=== PATIENT | female | born 1945 | race Caucasian/White ===

== ENCOUNTER 2019-07-04 19:28 | Observation (INO) | payer MEDICARE, BC, SELFPAY ==
--- NOTE | 2019-07-04 19:47 | DI.CT.S_ITS ---
PROCEDURE: CT STROKE INDICATIONS: stroke symptoms TECHNIQUE: Noncontrast 4.5 mm thick angled axial sections acquired from the foramen magnum to the vertex, with coronal reformats. For radiation dose reduction, the following was used: automated exposure control, adjustment of mA and/or kV according to patient size. COMPARISON: None. FINDINGS: Image quality: Excellent. CSF spaces: Basal cisterns are patent. No extra-axial fluid collections. The ventricles are symmetric in size and shape. Brain: No intracranial bleeds or masses. There is mild cerebral volume loss for age, with resultant ventricular and sulcal prominence. There are mild periventricular and deep white matter chronic small vessel ischemic changes. There is intracranial internal carotid artery atherosclerosis. Skull and face: Calvarium and visualized facial bones appear intact, without suspicious lesions. Sinuses: Visualized sinuses and mastoids are clear. IMPRESSION: 1. No acute intracranial abnormalities. 2. Cerebral volume loss and chronic microvascular ischemic changes. This result was discussed with Dr. Benjamín Oliveira at 20:23 hours. This study fulfills neurological imaging criteria for inclusion or exclusion of acute stroke therapies based on available published neurological guidelines. Dictated by: Dario Juarez M.D. on 07/04/2019 at 20:18 Approved by: Dario Juarez M.D. on 07/04/2019 at 20:24
[2019-07-04 19:52] VITALS: BP 151/67; PULSE 78; RESP 20; TEMP 36.4; O2SAT 98
--- NOTE | 2019-07-04 20:08 | ED.NEUROSD ---
HPI - Neuro Symptoms/Deficit General Chief Complaint: Neuro Symptoms/Deficit Stated Complaint: thinks had a TIA Time Seen by Provider: 07/04/19 19:46 Source: patient and family Mode of arrival: Ambulatory History of Present Illness HPI Narrative: 73-year-old woman currently receiving chemotherapy for Waldenstrom's macroglobulinemia presents after having a discrete approximately 2 minute episode of altered mental status. She was at dinner with her family with a daughter who is a nurse practitioner and [id number] who is an RN. She describes the episodes starting with black dots in all visual romero and a sense that something was wrong. She then has no recollection of the next 2 minutes and her daughter describes she lost consciousness slumped forward had some rhythmic bobbing movement of her head of both arms initially and then flaccidity in the left arm. She was sitting at the table at this time so we are not sure if legs were involved or not. She maintained her airway as well as pulses throughout the entire event. She regained consciousness on her symptoms all seem to completely resolve. The daughter does not note that she had any facial droop or facial asymmetries and as she was more alert, approximately 5-10 minutes to return to her baseline level of alertness, the left arm began working normally. On arrival in the emergency room she states that she feels little bit tired and somewhat ?off? but has no focal neurologic symptoms, no headache, no fevers no cough, no chills no lower extremity edema and no hyper reflexia. On Anticoagulants: No Review of Systems Review of Systems Narrative: Vulvar zoster since February of 2019 All systems reviewed and are unremarkable except as noted in HPI and below Patient History Medical History (Updated 07/04/19 @ 20:26 by Willow Butts MD) Waldenstroms macroglobulinemia (Acute) Surgical History (Updated 07/04/19 @ 20:26 by Willow Butts MD) H/O rotator cuff surgery (Acute) S/P diskectomy (Acute) Total knee replacement status (Acute) Exam Narrative Exam Narrative: General: Healthy appearing, in no acute distress. Able to give a complete and coherent history. Well-nourished well-developed HEENT: Moist mucous membranes, normal sclera with reactive pupils, Neck: No JVD, supple Respiratory: Lungs are clear to auscultation, no wheezing no rales no rhonchi. Full and symmetrical air movement Cardiac: Regular rate and rhythm no murmurs no bruits Abdomen: Soft nontender good bowel tones, no flank pain Skin: Warm and dry, no rashes Neurologic: Grossly neurologically intact with no obvious asymmetries or abnormalities, 2+ reflexes in upper extremities. No reflexes due to bilateral knee replacements at patella Extremities: No trauma, well perfused Psych: Cooperative, appropriate insight and affect NIH: 0 Initial Vital Signs Initial Vital Signs: Vital Signs Temperature 97.5 F L 07/04/19 19:52 Pulse Rate 78 07/04/19 19:52 Respiratory Rate 20 07/04/19 19:52 Blood Pressure 151/67 H 07/04/19 19:52 Pulse Oximetry 98 07/04/19 19:52 Course Course Course Narrative: 8:21pm Radiology - Head CT negative for bleed Orders Ordered: ED Orders 07/04/19 19:47 CT Stroke Stat Urine Drug Screen, Rapid Stat 07/04/19 20:12 EKG-12 Lead Stat 07/04/19 20:25 Basic Metabolic Panel Stat Complete Blood Count AUTO DIFF Stat Partial Thromboplastin Time Stat Prothrombin Time INR Stat Sodium Chloride (Normal Saline 0.9%) 1,000 mls @ 150 mls/hr IV CONT CARMEN Vital Signs Vital signs: Vital Signs - 8 hr 07/04/19 19:52 Temperature 97.5 F L Pulse Rate 78 Respiratory Rate 20 Blood Pressure 151/67 H Pulse Oximetry 98 MDM - Neuro Symptoms/Deficit Medical Records Attestation: I reviewed the patient's medical records. Lab Data Attestation: I reviewed the patient's lab results. Result diagrams: 07/04/19 20:25 07/04/19 20:25 Labs: Lab Results 07/04/19 07/04/19 07/04/19 Range/Units 20:25 20:25 20:25 WBC 6.6 (4.5-11.0) X10^3/uL RBC 3.96 L (4.0-5.2) X10^6/uL Hgb 11.7 L (12.0-16.0) g/dL Hct 34.5 L (36-46) % MCV 87.1 (80-100) fL MCH 29.4 (26-34) PG MCHC 33.8 (30-36) % RDW 13.3 (11.6-14.8) % Plt Count 142 L (150-400) X10^3/uL Neut % (Auto) Not Reportable Lymph % (Auto) Not Reportable [place] % (Auto) Not Reportable Eos % (Auto) Not Reportable Baso % (Auto) Not Reportable Lymph # (Auto) Not Reportable [place] # (Auto) Not Reportable Baso # (Auto) Not Reportable Total Counted 100 Seg Neutrophils % 74.0 H (38-70) % Band Neutrophils % 9.0 H (3-7) % Lymphocytes % (Manual) 4.0 L (25-45) % Monocytes % (Manual) 13.0 H (2-11) % Neutrophils # (Manual) 5478 (4160-3865) /uL RBC Morphology Normal morphology PT 11.7 (10.1-12.7) SECONDS INR 1.0 (0.9-1.3) APTT 29 (26.4-36.2) SECONDS Sodium 133 L (137-145) mmol/L Potassium 4.2 (3.4-5.1) mmol/L Chloride 99 (98-107) mmol/L Carbon Dioxide 25 (22-32) mmol/L BUN 15 (7-17) mg/dL Creatinine 0.80 (0.52-1.04) mg/dL Estimated GFR > 60.0 (>60) mL/min BUN/Creatinine Ratio 18.8 (6-22) Glucose 146 H (80-110) mg/dL Calcium 9.9 (8.4-10.2) mg/dL Imaging Data CT scan - head: Radiologist's Impression: IMPRESSION: 1. No acute intracranial abnormalities. 2. Cerebral volume loss and chronic microvascular ischemic changes. This result was discussed with Dr. Butts o at 20:23 hours. This study fulfills neurological imaging criteria for inclusion or exclusion of acute stroke therapies based on available published neurological guidelines. Dictated by: Dario Juarez M.D. on 07/04/2019 at 20:18 ECG Data Attestation: I personally reviewed and interpreted this ECG as follows: Interpretation: Sinus rhythm at a rate of 87. No acute ischemia, normal axis MDM Narrative Medical decision making narrative: Very significant discrete episode earlier today. Unclear if this represents of seizure versus a TIA. Initial imaging study is unremarkable remainder of studies are unremarkable and she is back to her baseline. Would like to admit her overnight to complete a full TIA workup. She is at risk for for hyper viscosity events due to her waldenstorm macroglobulinemia. 903pm care is reviewed with Dr. Frank. He will take care of the patient during her hospital admission. Transition orders will be entered. She is safe to transfer to the floor at this time.
[2019-07-04 20:33] LABS: Hematocrit 34.5 % (36-46); Hemoglobin 11.7 g/dL (12.0-16.0); Mean Corpuscular HGB Conc 33.8 % (30-36); Mean Corpuscular Hemoglobin 29.4 PG (26-34); Mean Corpuscular Volume 87.1 fL (80-100); Platelet Count 142 X10^3/uL (150-400); Red Blood Cell Count 3.96 X10^6/uL (4.0-5.2); Red Cell Distribution Width 13.3 % (11.6-14.8); White Blood Cell Count 6.6 X10^3/uL (4.5-11.0)
[2019-07-04 20:34] LABS: Add Manual Diff / Slide Review YES
[2019-07-04 20:39] LABS: Prothrombin Time 11.7 SECONDS (10.1-12.7)
[2019-07-04 20:41] LABS: PTT Partial Thromboplastin Tim 29 SECONDS (26.4-36.2)
[2019-07-04 20:42] LABS: BUN Creatinine Ratio 18.8 (6-22); Blood Urea Nitrogen 15 mg/dL (7-17); Calcium 9.9 mg/dL (8.4-10.2); Carbon Dioxide 25 mmol/L (22-32); Chloride 99 mmol/L (98-107); Estimated Glomerular Filt Rate > 60.0 mL/min (>60); Glucose 146 mg/dL (80-110); HEMOLYSIS < 15 (0-50); Potassium 4.2 mmol/L (3.4-5.1); Sodium 133 mmol/L (137-145)
[2019-07-04 20:55] LABS: Neutrophils Absolute Manual 5478 /uL (3000-5900); RBC Morphology Normal Morphology; Total Cells Counted 100
[2019-07-04 21:48] VITALS: BP 145/85; PULSE 86; RESP 18; TEMP 36.8; O2SAT 94
[2019-07-04 21:49] VITALS: BMI 30.6
--- NOTE | 2019-07-04 22:27 | PC.NURSE ---
Pt arrived on unit at approx 2124. She is A and O x 4, VSS. She is able to describe the event in great detail, however she has no memory of the actual seizure. She was told by her niece Marianne, that she became incontinent, was drooling, had significant weakness in her L UE, and had garbled speech. She states she had one glass of wine prior, and felt extremely light headed. She states she had a bout of shingles in her perineum/buttocks area for which she takes gabapentin. She was able to correctly answer all neuro questions and appears unaltered.
[2019-07-04 23:30] VITALS: BP 109/66; PULSE 81; RESP 16; TEMP 36.8; O2SAT 93
[2019-07-05] MEDS: SODIUM CHLORIDE 0.9% 1,000 ML 100 ML IV ×3 (00:32→09:47)
[2019-07-05] MEDS: GABAPENTIN 100 MG CAPSULE 200 MG PO ×2 (00:49→09:47)
[2019-07-05 03:55] VITALS: BP 99/59; PULSE 68; RESP 16; TEMP 36.8; O2SAT 94
--- NOTE | 2019-07-05 05:20 | PC.NURSE ---
Patient came to floor with minimal orders. Dr. Frank hotel operations manager doctor paged at [phone]. I told him there were no orders for the patient. He gave verbal telephone order for regular diet order, telemetry, and home medications ordered Tylenol Q8 975mg, Gabapentin 200mg BID, Naproxen 250 mg BID, Loratidine 10mg , Normal Saline at 100ml/hr. Dr. Frank to order MR/Stroke protocol in AM. VSS. Lung sounds clear. Denies pain.
[2019-07-05 08:00] VITALS: BP 138/89; PULSE 78; RESP 17; TEMP 36.4; O2SAT 94
--- NOTE | 2019-07-05 08:33 | DI.MRI.S_ITS ---
PROCEDURE: MR STROKE Pre- and post-contrast brain MRI, non-contrast brain MR angiogram, pre- and postcontrast neck MR angiogram INDICATIONS: stroke protocol TECHNIQUE: Brain: Noncontrast axial T1 spin echo, axial T2 fast spin echo, sagittal and axial FLAIR, coronal T2 fast spin echo, axial gradient echo, axial diffusion and ADC through the brain. After the administration of contrast, axial 3D VIBE of the cranial vasculature and brain. Brain MRA: Non-contrast 3-D time of flight MR angiogram, with multiple cqksdfe-wijdtquie-bnbiigfygh (MIP) reformats performed. Neck MRA: Axial and sagittal TruFISP through the neck. Coronal dynamic MR angiogram during administration of contrast in the arterial and venous phases, with 3-dimenstional fjbcfhq-gmjiiqizj-lewagsmxcx (MIP) reformats constructed from subtraction images. COMPARISON: [facility], CT, CT STROKE, 07/04/2019, 19:59. FINDINGS: Image quality: Excellent. BRAIN: The ventricular system and cortical sulci demonstrate atrophy, consistent for the patient's stated age. There are areas of increased T2/FLAIR signal intensity within the periventricular and subcortical white matter. There is no acute intra-or extra axial fluid collection. No acute hemorrhage, mass lesion or midline shift. Brainstem is unremarkable. There are no areas of restricted diffusion. Globes are symmetrical. Sinuses are aerated. Osseous structures are intact. BRAIN MR ANGIOGRAM: The posterior circulation demonstrates a left vertebral artery dominance. Basilar artery and posterior cerebral arteries demonstrate no areas of hemodynamically significant stenosis, vascular occlusion or aneurysmal dilation. Posterior communicating arteries are within normal limits. The anterior circulation, including the anterior and middle cerebral arteries, as well as internal carotid arteries demonstrates no areas of hemodynamically significant stenosis, vascular occlusion or aneurysmal dilation. 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 NECK MR ANGIOGRAM: The origins of the left and right common and external carotid arteries demonstrate no areas of hemodynamically significant stenosis, vascular occlusion or aneurysmal dilation. Less than 50% stenosis is present at the origin of the internal carotid arteries bilaterally. Origins of the left and right vertebral arteries demonstrate no areas of hemodynamically significant stenosis, vascular occlusion or aneurysmal dilation. Aortic arch demonstrates conventional anatomy. Limited, visualized portions of the subclavian vasculature are unremarkable. IMPRESSION: 1. No acute intracranial process. 2. Mild to moderate atrophy and chronic microvascular ischemic changes. 3. No areas of hemodynamically significant stenosis, vascular occlusion or aneurysmal dilation within the anterior or posterior circulation. 4. Less than 50% stenosis of the internal carotid arteries bilaterally. Dictated by: Nasrin Stuart M.D. on 07/05/2019 at 11:17 Approved by: Nasrin Stuart M.D. on 07/05/2019 at 11:28
--- NOTE | 2019-07-05 08:36 | PM.HP.1 ---
History of Present Illness History of Present Illness Date Patient Seen: 07/05/19 Time Patient Seen: 08:06 Chief complaint: thinks had a TIA Narrative: Patient is a 73-year-old female who lost consciousness at a restaurant. Was out about 2 minutes there was some complete and total lack of response and question of bobbing of head and both arms initially followed by flaccidity of the left arm. She was aware that she was not feeling good transiently before this episode visual spots to the sides than completely lost consciousness no vomiting but did lose control of her bladder. After approximately 2 minutes she began to regain consciousness felt very fatigued and a little groggy but felt like she was back at her baseline by the time she reached the emergency room. Patient has long history of all instruments and is recently started chemotherapy with adjustments in increases in her chemo exposure over the last 2 initial courses. Patient History Medical History (Updated 07/04/19 @ 22:38 by Willow Butts MD) Waldenstroms macroglobulinemia (Acute) Surgical History (Updated 07/04/19 @ 20:26 by Willow Butts MD) H/O rotator cuff surgery (Acute) S/P diskectomy (Acute) Total knee replacement status (Acute) Family & Social History Social History: household members none Prior Living Arrangements House Safety & Behavioral: Feels Safe in Current Yes Environment Been Physically Hurt or No Threatened By a Person Suicidal Ideation Description None Suicide Plan Description No Plan Tobacco & Substance use: Tobacco type cigarettes Smoking Status Former smoker alcohol intake frequency 0-2 drinks per day Substance Use Type does not use Meds Home Medications and Allergies Home Medications Medication Instructions Recorded Confirmed Type acetaminophen [Tylenol 8 Hour] 1,000 mg PO Q8H PRN 07/04/19 07/04/19 History gabapentin 200 mg PO BID 07/04/19 07/04/19 History loratadine [Claritin] 10 mg PO DAILY 07/04/19 07/04/19 History naproxen sodium [Aleve] 220 mg PO BID PRN 07/04/19 07/04/19 History Allergies Allergy/AdvReac Type Severity Reaction Status Date / Time hydrocodone [From [place]] Allergy Verified 07/04/19 22:21 Review of Systems Review of Systems ROS: Yes All systems reviewed with the patient and are negative except as otherwise documented Exam Vital Signs (past 8 hours): - 07/05/19 03:55 Temperature 98.2 F Pulse Rate 68 Respiratory Rate 16 Blood Pressure 99/59 L Pulse Oximetry 94 Oxygen Delivery Method Room Air Oxygen Flow Rate 0 Narrative Exam Narrative: Patient sitting alert comfortably no changes in speech or neurologic exam answering questions completely clearly PERRLA EOMs intact Neck without mass Lungs clear to auscultation percussion Heart shows regular rate and rhythm without murmur Abdomen nontender no hepatosplenomegaly Neuro intact symmetrical to sensory motor and cranial nerves intact Skin without any significant abnormalities Objective Labs Result Diagrams: 07/04/19 20:25 07/04/19 20:25 Labs: Laboratory Results - last 24 hr 07/04/19 07/04/19 07/04/19 20:25 20:25 20:25 WBC 6.6 RBC 3.96 L Hgb 11.7 L Hct 34.5 L MCV 87.1 MCH 29.4 MCHC 33.8 RDW 13.3 Plt Count 142 L Neut % (Auto) Not Reportable Lymph % (Auto) Not Reportable [place] % (Auto) Not Reportable Eos % (Auto) Not Reportable Baso % (Auto) Not Reportable Lymph # (Auto) Not Reportable [place] # (Auto) Not Reportable Baso # (Auto) Not Reportable Total Counted 100 Seg Neutrophils % 74.0 H Band Neutrophils % 9.0 H Lymphocytes % (Manual) 4.0 L Monocytes % (Manual) 13.0 H Neutrophils # (Manual) 5478 RBC Morphology Normal morphology PT 11.7 INR 1.0 APTT 29 Sodium 133 L Potassium 4.2 Chloride 99 Carbon Dioxide 25 BUN 15 Creatinine 0.80 Estimated GFR > 60.0 BUN/Creatinine Ratio 18.8 Glucose 146 H Calcium 9.9 Assessment & Plan Assessment & Plan narrative: Assessment 1. Syncopal episode with characteristics of seizure event. She has very high protein levels with her [place] strong is could have become viscous enough to obstruct transiently causing damage in breaths triggering seizure event she definitely was unconscious and had asymmetry in our movement along with head bobbing and loss of bladder control. She was feeling lightheaded and spots in her vision before this event happened so she could of been hypotensive as well these things could have been aggravated by her chemo. ER CT scan showed no mass but things MRI to final more clearly. Assessment 2. Waldenstroms, will Had this for many years just currently started chemo for that and so things are different than usual and she has felt much more fatigued lately. Will review with her oncologist about what her port which is the only are thing that she has internally that might have many metal and at. Also will discuss with him the possibility that her recent lytic chemo might have contributed to this event. Assessment 3. Patient has history of to bilateral knee replacements with patellar components. Patient is also had diskectomy for a back issues and a distant of rotator cuff procedure Quality VTE Deep Vein Thrombosis/Pulmonary Embolism Present on Admission: No
--- NOTE | 2019-07-05 09:21 | CM.DANOTE ---
DCP: Case received, EMR reviewed and met with patient. Introduced self and role. Was able to meet with patient to obtain information regarding baseline activity and health information. DCP assessment completed with information currently available. Patient is a 73 year old female who admitted yesterday evening to the care of the hospitalist team. PCP: YURIDIA Caceres. Payer: confirmed: Medicare/BCBS Out of [facility]. Patient came to the hospital via family vehicle secondary to symptoms of altered mental status. Patient is being checked for potential TIA versus seizure. Met with patient in her room. She is alert and oriented, pleasant. She stated that she was having dinner with her niece, who is a PA, and her [id number], who is an RN. She mentioned, she was seeing spots before her eyes. Patient is currently going to [facility] for chemo once a month for her [place]den[place]'s Macroglobulimia. Patient stated, she was diagnosed with this about 20 years ago. Patient lives alone, is independent. She has a neighbor named Juan Pablo, who checks in on her. Patient stated, she does feel weak on her chemo days, and spends most of her time in bed. She does have good support from friends and family. P: DCP to continue to follow and be available for any resources needed. Patient should be able to go home when she is medically stable. Isha Keith RN/Mine Motor Engineer
[2019-07-05 11:48] VITALS: BP 124/77; PULSE 73; RESP 17; TEMP 36.7; O2SAT 95
--- NOTE | 2019-07-05 14:33 | PC.NURSE ---
Shift summary: Alert and oriented X3. Moving all extremities equally, denies paresthesias. Denies having any of the same type of symptoms that precipitated her admission, and none have been observed by this scientific writer. MRI was done this morning. Tele monitoring ongoing, sinus rhythm per both readings. Lungs CTA. HRR. VSS. Room air. Denies pain or discomfort. Able to make needs known and calls appropriately. SBA OOB. Call light and belongings within reach, bed alarm on.
[2019-07-05 15:50] VITALS: BP 125/75; PULSE 75; RESP 16; TEMP 37; O2SAT 95
--- NOTE | 2019-07-05 16:52 | PC.NURSE ---
Evening note: Layla resting in bed, Ox3, VS stable. RA oxygen 95% and tele SR. Apical HR regular, murmur. Ambulated in hallways to [place] nurse station and back to room, gait steady. Read me part of her magazine, no slurred speech. Mac Developer equal & does not feel weakness to legs while ambulating. Awaiting visit from her son. Appears in good spirits and using nurse call button appropriately for help. Alarm active for safety & fall precautions are in place.
--- NOTE | 2019-07-05 17:43 | PM.DS.1 ---
History of Present Illness History of Present Illness Chief complaint: thinks had a TIA Narrative: Patient is a 73-year-old female who lost consciousness at a restaurant. Was out about 2 minutes there was some complete and total lack of response and question of bobbing of head and both arms initially followed by flaccidity of the left arm. She was aware that she was not feeling good transiently before this episode visual spots to the sides than completely lost consciousness no vomiting but did lose control of her bladder. After approximately 2 minutes she began to regain consciousness felt very fatigued and a little groggy but felt like she was back at her baseline by the time she reached the emergency room. Patient has long history of all instruments and is recently started chemotherapy with adjustments in increases in her chemo exposure over the last 2 initial courses. Discharge Providers Provider Date of admission: 07/04/19 21:12 Discharge Date: 07/05/19 Discharge provider: Alexandro Frank MD Summary Hospital Course Discharge Diagnosis: Assessment 1. Syncopal episode with factors consistent with seizure event. Loss of consciousness for several minutes with loss of bowel control and slight movement of arms. Could also have been hypotensive syncopal episode no arrhythmia noted and negative evaluation for those things in the ER. Doubt it would be result of TIA event given that she was out for 2 minutes and no injury seen on CT or MRI. I think patient is stable enough to discharge home with the negative workup and have follow-up with her primary care provider and [place] tomorrow and she can set up a neurologic evaluation to make sure that were not talking about possible seizure Assessment 2. [place]. 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 I talked with her oncologist Dr. Giovani Taylor today who felt like it was unlikely the meds with have triggered this event but she was not feeling well was not taking fluids well secondary to that and she might have been hypotensive. Hospital Course: Patient admitted from ER in the night last night following loss of consciousness and dinner as described above. Has been her normal self at her baseline cognitively neurologically physically in terms of vital signs since then with negative CT scan negative labs and negative MRI with MRA. As well she is doing I think she can go home follow-up outpatient with her usual provider Vanessa Tang nurse practitioner at [facility]. Have stressed importance of her not climbing on anything driving B unit situation where syncopal recurrence could be dangerous. She has an involved in close friends and family who are present. Status at Discharge Cognitive/behavioral status at discharge: oriented Functional status at discharge: independent ambulation Overall status at discharge: patient is back to baseline Time Spent with Patient Time spent: Greater than 30 minutes Exam Vital Signs (past 8 hours): - 07/05/19 11:48 07/05/19 15:50 Temperature 98.1 F 98.6 F Pulse Rate 73 75 Respiratory Rate 17 16 Blood Pressure 124/77 125/75 Pulse Oximetry 95 95 Oxygen Delivery Method Room Air Oxygen Flow Rate 0 Objective Labs Result Diagrams: 07/04/19 20:25 07/04/19 20:25 Labs: Laboratory Results - last 24 hr 07/04/19 07/04/19 07/04/19 20:25 20:25 20:25 WBC 6.6 RBC 3.96 L Hgb 11.7 L Hct 34.5 L MCV 87.1 MCH 29.4 MCHC 33.8 RDW 13.3 Plt Count 142 L Neut % (Auto) Not Reportable Lymph % (Auto) Not Reportable [place] % (Auto) Not Reportable Eos % (Auto) Not Reportable Baso % (Auto) Not Reportable Lymph # (Auto) Not Reportable [place] # (Auto) Not Reportable Baso # (Auto) Not Reportable Total Counted 100 Seg Neutrophils % 74.0 H Band Neutrophils % 9.0 H Lymphocytes % (Manual) 4.0 L Monocytes % (Manual) 13.0 H Neutrophils # (Manual) 5478 RBC Morphology Normal morphology PT 11.7 INR 1.0 APTT 29 Sodium 133 L Potassium 4.2 Chloride 99 Carbon Dioxide 25 BUN 15 Creatinine 0.80 Estimated GFR > 60.0 BUN/Creatinine Ratio 18.8 Glucose 146 H Calcium 9.9 Discharge Plan Discharge Plan Patient Disposition: Home Discharge orders & Medications Prescriptions: Continued acetaminophen [Tylenol 8 Hour] 650 mg Tablet Extended Release 1,000 mg PO Q8H PRN (Reason: Body Aches ) RF: 0 gabapentin 100 mg Capsule 200 mg PO BID RF: 0 loratadine [Claritin] 10 mg Tablet 10 mg PO DAILY RF: 0 naproxen sodium [Aleve] 220 mg Capsule 220 mg PO BID PRN (Reason: Pain, Mild) RF: 0 Follow up/Referrals: Vanessa Tang ARNP [[facility]] - 07/06/19 3:30 pm Discharge Health Status Health Concerns: syncopal episode, ?seizure vs TIA Multidrug resistant organism: No MDRO Diet/Activity/Treatments Diet: Diet as Tolerated Activity: rest, no driving Discharge Data Attending Provider: Alexandro Frank Admit Date/Time: 07/04/19 21:12 Quality VTE Deep Vein Thrombosis/Pulmonary Embolism Present on Admission: No
--- NOTE | 2019-07-05 18:39 | PC.NURSE ---
Discharge note: Dr Frank in room to see patient, new orders given to DC patient home. I revieved DC paperwork & all instructions with her & her son. Aware of follow up appt tomorrow and of instruction by MD to rest and not to drive. Teaching given re: syncope, dehydration, s/s of stroke, etc. VS stable, tele sinus. Tele DC'd. IV to LAC DC'd, pressure drsg applied. Patient now getting dressed. Denies dizziness, speech clear. Ambulating independent in room with steady gait.
== END 2019-07-05 19:00 | disposition home or self-care (01) ==
LOC: ED 20:34 → AC 21:13
PROVIDERS: Admitting Provider Family Medicine; Emergency Provider Emergency Medicine; Visit Provider Family Medicine
DX: R29.818 Other symptoms and signs involving the nervous system (principal); C88.0 Waldenstrom macroglobulinemia; R55 Syncope and collapse
CPT/HCPCS: 36415; 70450; 70548; 70553; 80048; 85025; 85610; 85730; 93005; 96360; 96361; 99284; 99285; G0378